=== PATIENT | female | born 1970 | race Caucasian/White ===

== ENCOUNTER 2021-11-16 17:39 | Emergency (ER) | payer SELFPAY ==
[~2021-11-16] VITALS: Ht 162.6 cm; Wt 127.0 kg
[2021-11-16 20:52] VITALS: BP 142/80
== END 2021-11-16 20:52 | disposition home or self-care (01) ==
LOC: FSED 17:55
DX: R42 Dizziness and giddiness (principal); F41.9 Anxiety disorder, unspecified; D68.59 Other primary thrombophilia; D68.318 Other hemorrhagic disorder due to intrinsic circulating anticoagulants, antibodies, or inhibitors
CPT/HCPCS: 70450; 71046; 80048; 80053; 81003; 82553; 83880; 84484; 85379; 93005; 99284